=== PATIENT | female | born 1970 | race Caucasian/White ===

== ENCOUNTER 2018-01-17 08:32 | Day surgery (SDC) | payer MEDICAID ==
[~2018-01-17] VITALS: Ht 157.5 cm; Wt 80.0 kg
[2018-01-17 08:47] VITALS: BP 146/92
[2018-01-17] MEDS ORDERED: DIAZ2TAB PO (08:48)
[2018-01-17] MEDS ORDERED: ESTR1TAB19 PO (08:49)
[2018-01-17] MEDS ORDERED: HYDR-565 PO (08:49)
[2018-01-17] MEDS ORDERED: CHOL10002 PO (08:50)
[2018-01-17] MEDS ORDERED: LEVO50TA8 PO (08:50)
[2018-01-17] MEDS ORDERED: FLUT16SP2 BOTHNARES (08:51)
[2018-01-17] MEDS ORDERED: CETI-102 PO (08:51)
[2018-01-17] MEDS ORDERED: LIDOcaine Viscous 15ml cup ONE (08:51)
[2018-01-17] MEDS ORDERED: MIDAZolam 5mg/5ml vial ONE (08:51)
[2018-01-17] MEDS ORDERED: fentaNYL/PF 50MCG/1 ML 2ML syringe ONE (08:51)
[2018-01-17] MEDS ORDERED: ALBU18HF2 INH (08:52)
[2018-01-17 09:20] VITALS: BP 133/91
[2018-01-17 09:30] VITALS: BP 139/78
[2018-01-17 09:40] VITALS: BP 133/77
[2018-01-17 09:50] VITALS: BP 156/98
== END 2018-01-17 09:55 | disposition home or self-care (01) ==
LOC: GI LAB 08:32
PROVIDERS: ATTEND Internal Medicine Gastroenterology
DX: K29.50 Unspecified chronic gastritis without bleeding (principal); K20.9 Esophagitis, unspecified; J45.998 Other asthma; Z88.6 Allergy status to analgesic agent; Z91.012 Allergy to eggs; Z88.1 Allergy status to other antibiotic agents; Z79.891 Long term (current) use of opiate analgesic; Z87.891 Personal history of nicotine dependence; Z98.51 Tubal ligation status; Z90.710 Acquired absence of both cervix and uterus; Z88.8 Allergy status to other drugs, medicaments and biological substances; Z79.899 Other long term (current) drug therapy; Z98.890 Other specified postprocedural states
CPT/HCPCS: 43239; 99152; J2250; J3010; J7030; A4620; G0500

== ENCOUNTER → 2024-01-23 | Outpatient (CLI) | payer MEDICAID ==
[~2024-01-23] MED LIST: ALBU18HF2 INH; CETI-90 PO; CHOL10002 PO; DIAZ2TAB PO; ESTR1TAB19 PO; FLUT16SP2 BOTHNARES; HYDR-4353 PO; LEVO50TA8 PO
== END | disposition home or self-care (01) ==
LOC: MRI 10:35
PROVIDERS: ATTEND Nurse Practitioner
DX: S22.060D Wedge compression fracture of T7-T8 vertebra, subsequent encounter for fracture with routine healing (principal); M51.34 Other intervertebral disc degeneration, thoracic region; M51.24 Other intervertebral disc displacement, thoracic region; M48.04 Spinal stenosis, thoracic region; D18.09 Hemangioma of other sites; M96.1 Postlaminectomy syndrome, not elsewhere classified; Z98.890 Other specified postprocedural states; X58.XXXD Exposure to other specified factors, subsequent encounter
CPT/HCPCS: 72146